=== PATIENT | male | born 1975 | race Caucasian/White ===

== ENCOUNTER 2016-09-28 09:30 | Emergency (ER) | payer BC ==
[2016-09-28 10:08] VITALS: BP 133/85; PULSE 72; RESP 18; TEMP 98.8; O2SAT 95
--- NOTE | 2016-09-28 10:26 | UCPHY ---
H & P Time Seen by Provider: 09/28/16 09:51 Patient Type: New HPI/ROS: 40-year-old male presents complaining of right ear pain and right maxillary sinus congestion. He states he has had a chest cold for several weeks and then over the last 2 or 3 days has had marked increase in pressure in his right ear and right sided facial sinuses and difficulty with nasal congestion. He rarely gets sinus infections. Review of systems As per HPI General no fever no chills no weakness HEENT no eye pain no eye discharge. No eye redness, no sore throat Positive URI symptoms positive right ear pain positive right facial pain Respiratory positive cough, no shortness of breath Cardiac no chest pain, no peripheral edema GI no abdominal pain, no diarrhea, no constipation, no nausea, no vomiting no flank pain, no hematuria, no dysuria Musculoskeletal no myalgias, no joint pain Heme no easy bruising, no easy bleeding Endo no polyuria, no polydipsia Skin no rashes, no pruritus Neuro no syncope, no dizziness, no headaches Psych is no suicidal ideation, no homicidal ideation Past Medical/Surgical History: Attention deficit hyperactivity disorder Smoking Status: Never smoked Physical Exam: 40-year-old male alert and oriented no acute distress Alert and oriented nontoxic appearance, no acute distress afebrile Atraumatic normocephalic Extraocular muscles intact, anicteric Right TM with effusion and mild erythema Nares mild yellowish discharge, right nasal turbinates markedly swollen Oropharynx mild erythema no tonsillar swelling no exudate no uvular deviation, tolerating own secretions Neck supple no lymphadenopathy Lungs clear to auscultation bilaterally Heart regular rate and rhythm Abdomen normoactive bowel sounds soft nontender Extremities no cyanosis clubbing or edema Skin no rash Constitutional: Initial Vital Signs Temperature (C) 37.1 C 09/28/16 09:50 Heart Rate 72 09/28/16 09:50 Respiratory Rate 18 09/28/16 09:50 Blood Pressure 133/85 H 09/28/16 09:50 O2 Sat (%) 95 09/28/16 09:50 O2 Delivery Mode Room Air Allergies/Adverse Reactions: morphine Allergy (Verified 09/28/16 09:49) Home Medications: Medication Instructions Recorded Adderall 10 MG (*) 09/28/16 Amoxicillin/Clavulanate Pot 875 mg PO BID #20 tab 09/28/16 [Augmentin 875 MG TAB (*)] Cetirizine [ZyrTEC 10 mg (*)] 10 mg PO DAILY #30 tab 09/28/16 Fluticasone Nasal [Flonase Nasal 2 sprays NASAL DAILY #1 [facility]di 09/28/16 [place]] Medical Decision Making ED Course/Re-evaluation: Patient seen and evaluated for right ear pain and right facial pain following several weeks of chest congestion Differential diagnosis considered URI, otitis media, sinusitis, bronchitis, pneumonia Impression Right otitis media Right maxillary sinusitis Plan Augmentin 875 twice daily Zyrtec Fluticasone nasal spray Follow-up PCP Departure - Departure Disposition: Home, Routine, Self-Care Clinical Impression: Right otitis media, Sinusitis, acute Condition: Good Instructions: Sinusitis (ED), Otitis Media (ED) Referrals: GAVI VELASCO [Other] - As per Instructions Prescriptions: Amoxicillin/Clavulanate Pot [Augmentin 875 MG TAB (*)] 875 mg PO BID #20 tab Cetirizine [ZyrTEC 10 mg (*)] 10 mg PO DAILY #30 tab Fluticasone Nasal [Flonase Nasal [place]] 2 sprays NASAL DAILY #1 mdi - PQRS PQRS Measurement: Not applicable
== END 2016-09-28 10:35 | disposition home or self-care (01) ==
LOC: CED 09:30
DX: H66.91 Otitis media, unspecified, right ear (principal); J01.90 Acute sinusitis, unspecified
CPT/HCPCS: G0463-PO